=== PATIENT | male | born 1960 | race Caucasian/White ===

== ENCOUNTER → 2016-05-27 | Outpatient (CLI) | payer OTHER ==
[~2016-05-27] MED LIST: ANTIVERT 12.512.5 MG PO; DITROPAN XL10 MG PO; FLOMAX 0.40.4 MG/CAP PO; LEVAQUIN 750MG750 M1 PO; LEVSIN 0.10.125 MG/T PO; NO HOME MEDICATIONS; NORCO 325 MG-51 TAB PO; NORCO 325 MG-7.1 TAB PO; PRILOSEC40 MG PO; PRINIVIL20 MG PO; PYRIDIUM 100MG100 MG PO; SENOKOT S 50 MG1 TAB PO; TYLENOL 325MG325 MG PO
== END ==
LOC: ZLAB.FHCC 12:21
DX: Z01.89 Encounter for other specified special examinations (principal)

== ENCOUNTER 2017-08-01 02:05 | Emergency (ER) | payer SELFPAY ==
[2017-08-01 02:08] VITALS: TEMP 97.5
[2017-08-01 02:25] LABS: COLLECTION METHOD CLEAN CATCH
[2017-08-01 02:32] LABS: MUCOUS Present /lpf; PH 5 (5-8); SQUAMOUS EPITHELIAL None Seen /hpf; URINE APPEARANCE Hazy; URINE BACTERIA None Seen /hpf; URINE BILIRUBIN Negative (NEGATIVE); URINE BLOOD 3+ (NEGATIVE); URINE COLOR Yellow; URINE GLUCOSE 1+ (NEGATIVE); URINE KETONE Negative (NEGATIVE); URINE LEUKOCYTE ESTERASE Negative (NEGATIVE); URINE NITRATE Negative (NEGATIVE); URINE PROTEIN(semi-quant) 1+ (NEGATIVE); URINE RBC >50 /hpf; URINE UROBILINOGEN Negative (NEGATIVE)
[2017-08-01 02:34] LABS: BASO % 0.1 % (0.0-2.0); EOS # 0.2 (0.0-0.7); EOS % 1.9 % (0-4.0); GRAN # 4.3 (1.4-6.5); HEMATOCRIT 44.6 % (42.0-52.0); HEMOGLOBIN 15.5 g/dl (13.5-18.0); LYMPH # 2.7 (1.2-3.4); LYMPH % 34.2 % (20.0-51.0); MEAN CELL VOLUME 89 fl (80.0-100.0); MEAN CORPUSCULAR HEMOGLOBIN 31 pg (27.0-31.0); MEAN CORPUSCULAR HGB CONC 35 g/dl (33.0-37.0); MEAN PLATELET VOLUME 9.5 fl (7.4-10.4); MONO # 0.7 (0.1-0.6); MONO % 8.5 % (1.7-9.3); PLATELET COUNT 200 K/mm3 (130-400); RED BLOOD COUNT 5.01 M/mm3 (4.20-5.60); REDCELL DISTRIBUTION WIDTH-CV 13.6 % (11.5-14.5)
[2017-08-01 02:51] LABS: ALBUMIN 4.2 gm/dL (3.5-5.0); BILIRUBIN,TOTAL 0.4 mg/dL (0.0-1.0); CREATININE, serum 1.03 mg/dL (0.66-1.25); TOTAL PROTEIN 7.6 gm/dL (6.4-8.2)
[2017-08-01 04:09] VITALS: BP 137/91; PULSE 68
== END 2017-08-01 04:15 | disposition home or self-care (01) ==
LOC: COL.ER 02:05
PROVIDERS: Nurse Practitioner
DX: N20.1 Calculus of ureter (principal); I10 Essential (primary) hypertension; F17.210 Nicotine dependence, cigarettes, uncomplicated; Z87.442 Personal history of urinary calculi; Z88.0 Allergy status to penicillin; Z90.89 Acquired absence of other organs; Z98.890 Other specified postprocedural states
CPT/HCPCS: J1170; J1885; J2405; J7030

== ENCOUNTER → 2018-01-15 | Outpatient (CLI) | payer SELFPAY ==
[2018-01-15 10:11] LABS: HEMATOCRIT 45.5 % (42.0-52.0); HEMOGLOBIN 15.6 g/dl (13.5-18.0); MEAN CELL VOLUME 90 fl (80.0-100.0); MEAN CORPUSCULAR HEMOGLOBIN 31 pg (27.0-31.0); MEAN CORPUSCULAR HGB CONC 34 g/dl (33.0-37.0); MEAN PLATELET VOLUME 10.3 fl (7.4-10.4); PLATELET COUNT 214 K/mm3 (130-400); RED BLOOD COUNT 5.08 M/mm3 (4.20-5.60); REDCELL DISTRIBUTION WIDTH-CV 13.7 % (11.5-14.5)
[2018-01-15 10:17] LABS: ALBUMIN 4.1 gm/dL (3.5-5.0); BILIRUBIN,TOTAL 0.7 mg/dL (0.0-1.0); CHOLESTEROL RISK RATIO 5.8; CREATININE, serum 0.93 mg/dL (0.66-1.25); POTASSIUM 4.4 mmol/L (3.4-5.0); TOTAL PROTEIN 7.1 gm/dL (6.4-8.2)
== END ==
LOC: COL.LAB 08:32
DX: I10 Essential (primary) hypertension (principal); E78.5 Hyperlipidemia, unspecified

== ENCOUNTER → 2018-04-06 | Outpatient (CLI) | payer OTHER ==
[2018-04-06 15:44] LABS: HEMATOCRIT 47.1 % (42.0-52.0); HEMOGLOBIN 16.4 g/dl (13.5-18.0); MEAN CELL VOLUME 89 fl (80.0-100.0); MEAN CORPUSCULAR HEMOGLOBIN 31 pg (27.0-31.0); MEAN CORPUSCULAR HGB CONC 35 g/dl (33.0-37.0); MEAN PLATELET VOLUME 11.2 fl (7.4-10.4); PLATELET COUNT 211 K/mm3 (130-400); RED BLOOD COUNT 5.27 M/mm3 (4.20-5.60); REDCELL DISTRIBUTION WIDTH-CV 13.2 % (11.5-14.5)
[2018-04-06 15:57] LABS: ALBUMIN 4.3 gm/dL (3.5-5.0); BILIRUBIN,TOTAL 0.6 mg/dL (0.0-1.0); CALCIUM 9.7 mg/dL (8.4-10.2); CREATININE, serum 1.04 mg/dL (0.66-1.25); POTASSIUM 4.7 mmol/L (3.4-5.0); TOTAL PROTEIN 7.2 gm/dL (6.4-8.2)
[2018-04-06 17:25] LABS: PSA-TOTAL 3.62 ng/mL (0-4)
== END ==
LOC: ZCOL.LAB 14:22
PROVIDERS: Internal Medicine
DX: I10 Essential (primary) hypertension (principal); E11.9 Type 2 diabetes mellitus without complications
CPT/HCPCS: G0103

== ENCOUNTER 2018-04-27 11:39 | Day surgery (SDC) | payer SELFPAY ==
[~2018-04-27] VITALS: Ht 167.6 cm; Wt 71.9 kg
[2018-04-27 12:10] VITALS: BP 139/94; PULSE 80; TEMP 97.8
[2018-04-27 13:25] VITALS: BP 133/91; PULSE 80
--- NOTE | 2018-04-27 13:25 | NUR ---
The patient is wheeled to [facility] via cart by Arlin CHEN. The patient ambulates to the chair with a steady gait and nurse standby assist. The patient's vital signs are stable. Report is obtained. The patient has a dry color tester at the bedside. The patient is naueous and Zofran is administered. The call light is within reach and family is at the bedside. Will continue to monitor.
[2018-04-27 13:40] VITALS: BP 110/74; PULSE 75; TEMP 97.6
--- NOTE | 2018-04-27 13:40 | NUR ---
The patient's vital signs are stable. The patient states that his nausea has improved but he is still sleepy at this time. The patient will be allowed to rest more before he attempts to eat or drink anything. The patient's family member translates to the patient. The call light is within reach and the family members are at the bedside. Will continue to monitor.
[2018-04-27 13:55] VITALS: BP 110/75; PULSE 72
--- NOTE | 2018-04-27 13:55 | NUR ---
The patient's vital signs are stable. The patient wakes and requests apple juice and jello which is brought to him at this time. The call light is within reach and the family members are at the bedside. Will continue to monitor.
[2018-04-27 14:10] VITALS: BP 117/84; PULSE 74
--- NOTE | 2018-04-27 14:10 | NUR ---
The patient's vital signs are stable and the patient tolerated the jello and apple juice. The patient is ready to be discharged. The discharge instructions will be reviewed with the patient and his family.
--- NOTE | 2018-04-27 14:29 | NUR ---
The discharge instructions are reviewed with the patient and his family and all questions are answered. The IV is removed and the tip is intact and a dressing is applied. The patient changes into his personal clothes to be discharged home.
--- NOTE | 2018-04-27 14:29 | NUR ---
The discharge instructions are reviewed with the patient and his family with use of the can filler. All questions are answered. The IV is removed and the tip is intact and a dressing is applied. The patient changes into his personal clothes to be discharged home.
--- NOTE | 2018-04-27 14:38 | NUR ---
The patient is wheeled to the patient entrance via wheelchair to be discharged home via personal vehicle by his family. The patient is sent home with discharge instructions and education packet.
== END 2018-04-27 14:38 | disposition home or self-care (01) ==
LOC: SDCO 11:39
DX: Z80.0 Family history of malignant neoplasm of digestive organs (principal); D12.5 Benign neoplasm of sigmoid colon; D12.7 Benign neoplasm of rectosigmoid junction; K63.5 Polyp of colon; E78.5 Hyperlipidemia, unspecified; K64.0 First degree hemorrhoids; K62.89 Other specified diseases of anus and rectum; I10 Essential (primary) hypertension; Z79.899 Other long term (current) drug therapy; Z88.0 Allergy status to penicillin
CPT/HCPCS: J2250; J2405; J3010; J7030

== ENCOUNTER 2018-05-15 04:56 | Emergency (ER) | payer OTHER ==
[~2018-05-15] VITALS: Ht 170.2 cm; Wt 72.7 kg
[2018-05-15 05:00] VITALS: TEMP 97.8
[2018-05-15 05:31] LABS: BASO % 0.3 % (0.0-2.0); EOS # 0.2 (0.0-0.7); EOS % 2.1 % (0-4.0); GRAN # 3.9 (1.4-6.5); HEMATOCRIT 43.8 % (42.0-52.0); HEMOGLOBIN 15.1 g/dl (13.5-18.0); LYMPH # 2.5 (1.2-3.4); LYMPH % 34.7 % (20.0-51.0); MEAN CELL VOLUME 90 fl (80.0-100.0); MEAN CORPUSCULAR HEMOGLOBIN 31 pg (27.0-31.0); MEAN CORPUSCULAR HGB CONC 35 g/dl (33.0-37.0); MEAN PLATELET VOLUME 10.1 fl (7.4-10.4); MONO # 0.5 (0.1-0.6); MONO % 7.6 % (1.7-9.3); PLATELET COUNT 198 K/mm3 (130-400); RED BLOOD COUNT 4.85 M/mm3 (4.20-5.60); REDCELL DISTRIBUTION WIDTH-CV 13.4 % (11.5-14.5)
[2018-05-15 05:46] LABS: C-REACTIVE PROTEIN 1.3 mg/dL (0.0-0.9); CREATININE, serum 0.91 mg/dL (0.66-1.25); POTASSIUM 3.9 mmol/L (3.4-5.0)
[2018-05-15 05:53] LABS: ERYTHROCYTE SEDIMENTATION RATE 2 mm/hr (0-30)
[2018-05-15] MEDS ORDERED: PHENERGAN 25 TA25 MG PO (06:30)
[2018-05-15] MEDS ORDERED: NEURONTIN300 MG/CAP PO (06:30)
[2018-05-15 07:05] VITALS: BP 138/91; PULSE 70
== END 2018-05-15 07:05 | disposition home or self-care (01) ==
LOC: COL.ER 04:56
PROVIDERS: Emergency Medicine
DX: R51 Headache (principal); I10 Essential (primary) hypertension; F17.210 Nicotine dependence, cigarettes, uncomplicated; Z90.89 Acquired absence of other organs
CPT/HCPCS: J1200; J1885; J2550; J7030

== ENCOUNTER → 2018-09-15 | Outpatient (CLI) | payer OTHER ==
[~2018-09-15] MED LIST changes: +NEURONTIN300 MG/CAP PO; +PHENERGAN 25 TA25 MG PO; +PRINIVIL40 MG PO
[2018-09-15 11:01] LABS: HEMATOCRIT 48.4 % (42.0-52.0); HEMOGLOBIN 16.4 g/dl (13.5-18.0); MEAN CELL VOLUME 91 fl (80.0-100.0); MEAN CORPUSCULAR HEMOGLOBIN 31 pg (27.0-31.0); MEAN CORPUSCULAR HGB CONC 34 g/dl (33.0-37.0); PLATELET COUNT 202 K/mm3 (130-400); RED BLOOD COUNT 5.34 M/mm3 (4.20-5.60); REDCELL DISTRIBUTION WIDTH-CV 13.2 % (11.5-14.5)
[2018-09-15 11:10] LABS: ALBUMIN 4.6 gm/dL (3.5-5.0); BILIRUBIN,TOTAL 0.8 mg/dL (0.0-1.0); CALCIUM 9.7 mg/dL (8.4-10.2); POTASSIUM 4.7 mmol/L (3.4-5.0); TOTAL PROTEIN 7.9 gm/dL (6.4-8.2)
== END ==
LOC: COL.CARD 10:13
PROVIDERS: Surgery
DX: Z01.818 Encounter for other preprocedural examination (principal)

== ENCOUNTER 2018-09-17 10:07 | Day surgery (SDC) | payer OTHER ==
[~2018-09-17] VITALS: Ht 170.2 cm; Wt 73.2 kg
[~2018-09-17 10:07] MED LIST changes: -PRINIVIL40 MG PO
[2018-09-17 10:52] VITALS: BP 137/89; PULSE 66; TEMP 97.6
[2018-09-17] MEDS ORDERED: PRINIVIL40 MG PO (10:52)
--- NOTE | 2018-09-17 12:45 | NUR ---
Patient is resting on the cart and awaits surgery. Family in room.
[2018-09-17] MEDS ORDERED: NORCO 325 MG-51 TAB PO (15:23)
[2018-09-17 15:35] VITALS: BP 120/77; PULSE 70; TEMP 98.4
--- NOTE | 2018-09-17 15:35 | NUR ---
The patient arrived back to [facility] from the recovery room at this time. The patient appears alert and oriented and reports minimal pain in his abdomen at this time. The patient has three bandaids to his abdomen that appear clean, dry, and intact. The patient has scrotal support in place at this time. Post operative vital signs were started at this time. The patient's family is at his bedside at this time. The patient came over from recovery with some ice chips and appears to be tolerating them well. Call light is within reach. The patient's Aunt Patricia is helping the nurse to interrupt as the patient is Hebrew speaking. Will continue to monitor the patient.
[2018-09-17 15:50] VITALS: BP 124/70; PULSE 73
--- NOTE | 2018-09-17 15:50 | NUR ---
The patient appears to be tolerating the ice chips well and agrees to try a muffin, jello, and orange juice. Vital signs appear stable. The patient's family remains at his bedside. Will continue to monitor the patient.
[2018-09-17 16:03] VITALS: TEMP 98.2
[2018-09-17 16:05] VITALS: BP 120/77; PULSE 80
--- NOTE | 2018-09-17 16:10 | NUR ---
The patient has finished his food and drink and appeared to tolerate both well. The patient was given a dose of [place] one tab at this time to continue his pain control. Vital signs appear stable. Call light is within reach. Will continue to monitor the patient.
[2018-09-17 16:30] VITALS: BP 125/70; PULSE 81
--- NOTE | 2018-09-17 16:30 | NUR ---
The patient is sitting up in bed and appears to be resting comfortably on the cart. The patient voices a desire to be discharged home. The patient's IV to his right hand was removed by GUSTAVO Contreras. The patient's is going to assist him to get dressed and then his discharge instrucitons will be reviewed.
--- NOTE | 2018-09-17 16:40 | NUR ---
Discharge instructions were reviewed with the patient and his family with the assistance of his Aunt Patricia hughesrochelle for the nurse. They all verbalized understanding and questions were answered at this time. The patient's took the patient's scrotal support off when getting him dressed and the nurse instructed her to put it back on when they get home.
--- NOTE | 2018-09-17 16:49 | NUR ---
The patient was escorted out via wheelchair to a private vehicle by GUSTAVO Parada. The patient's belongings and discharge paperwork were sent with him. The patient's family is present to drive him home.
== END 2018-09-17 16:49 | disposition home or self-care (01) ==
LOC: SDCO 10:07
DX: K40.90 Unilateral inguinal hernia, without obstruction or gangrene, not specified as recurrent (principal); D17.6 Benign lipomatous neoplasm of spermatic cord; I10 Essential (primary) hypertension; E78.00 Pure hypercholesterolemia, unspecified; F17.210 Nicotine dependence, cigarettes, uncomplicated; Z95.0 Presence of cardiac pacemaker; Z87.442 Personal history of urinary calculi
CPT/HCPCS: C1781; J0690; J1100; J1885; J2270; J2405; J2704; J3010; J7120

== ENCOUNTER → 2018-12-17 | Outpatient (CLI) | payer SELFPAY ==
[~2018-12-17] MED LIST changes: +PRINIVIL40 MG PO
[2018-12-17 08:46] LABS: HEMATOCRIT 49.5 % (42.0-52.0); HEMOGLOBIN 16.9 g/dl (13.5-18.0)
[2018-12-17 09:02] LABS: ALBUMIN 4.6 gm/dL (3.5-5.0); BILIRUBIN,TOTAL 0.7 mg/dL (0.0-1.0); CALCIUM 9.2 mg/dL (8.4-10.2); CHOLESTEROL RISK RATIO 6.3; CREATININE, serum 0.99 (0.66-1.25); POTASSIUM 4.7 mmol/L (3.4-5.0); TOTAL PROTEIN 7.5 gm/dL (6.4-8.2)
== END ==
LOC: COL.LAB 08:16
PROVIDERS: Internal Medicine
DX: I10 Essential (primary) hypertension (principal)

== ENCOUNTER → 2019-01-27 | Outpatient (CLI) | payer OTHER | LOC: COL.RAD 14:06 | DX: N43.3 Hydrocele, unspecified (principal) ==

== ENCOUNTER 2019-04-30 14:14 | Emergency (ER) | payer OTHER ==
[~2019-04-30] VITALS: Ht 170.2 cm; Wt 74.5 kg
[2019-04-30 14:19] VITALS: BP 166/97; TEMP 99
[2019-04-30] MEDS ORDERED: DOXYCYCLINE HY100 MG PO (14:32)
[2019-04-30] MEDS ORDERED: VALTREX1 GM PO (15:23)
[2019-04-30] MEDS ORDERED: NORCO 325 MG-51 TAB PO ×2 (15:23→15:51)
[2019-04-30] MEDS ORDERED: NEURONTIN300 MG/CAP PO (15:23)
[2019-04-30 16:00] VITALS: PULSE 84
== END 2019-04-30 16:01 | disposition home or self-care (01) ==
LOC: COL.ER 14:14
DX: B02.9 Zoster without complications (principal); R07.89 Other chest pain

== ENCOUNTER → 2019-11-18 | Outpatient (CLI) | payer SELFPAY ==
[~2019-11-18] MED LIST changes: +DOXYCYCLINE HY100 MG PO; +VALTREX1 GM PO
== END ==
LOC: COL.RAD 08:10
DX: N20.0 Calculus of kidney (principal); N40.0 Benign prostatic hyperplasia without lower urinary tract symptoms; Z90.89 Acquired absence of other organs

== ENCOUNTER 2020-09-08 21:59 | Emergency (ER) | payer OTHER ==
[~2020-09-08] VITALS: Ht 170.2 cm; Wt 74.5 kg
[2020-09-08 22:59] LABS: COLLECTION METHOD CLEAN CATCH
[2020-09-08 23:05] LABS: MUCOUS Present /lpf; PH 5 (5-8); SQUAMOUS EPITHELIAL 0-2 /hpf; URINE APPEARANCE Hazy; URINE BACTERIA Rare /hpf; URINE BILIRUBIN Negative (NEGATIVE); URINE BLOOD 3+ (NEGATIVE); URINE COLOR Yellow; URINE GLUCOSE 2+ (NEGATIVE); URINE KETONE Trace (NEGATIVE); URINE LEUKOCYTE ESTERASE Negative (NEGATIVE); URINE NITRATE Negative (NEGATIVE); URINE PROTEIN(semi-quant) 1+ (NEGATIVE); URINE RBC >50 /hpf
[2020-09-08 23:20] LABS: BASO % 0.2 % (0.0-2.0); EOS # 0.2 (0.0-0.7); GRAN # 6.2 (1.4-6.5); GRAN % 76.3 % (42.2-75.2); HEMATOCRIT 45.5 % (42.0-52.0); HEMOGLOBIN 15.5 g/dl (13.5-18.0); LYMPH # 1.2 (1.2-3.4); MEAN CELL VOLUME 90 fl (80.0-100.0); MEAN CORPUSCULAR HEMOGLOBIN 31 pg (27.0-31.0); MEAN CORPUSCULAR HGB CONC 34 g/dl (33.0-37.0); MEAN PLATELET VOLUME 10.3 fl (7.4-10.4); MONO # 0.5 (0.1-0.6); MONO % 6.3 % (1.7-9.3); PLATELET COUNT 191 K/mm3 (130-400); RED BLOOD COUNT 5.06 M/mm3 (4.20-5.60); REDCELL DISTRIBUTION WIDTH-CV 13.7 % (11.5-14.5)
[2020-09-08 23:33] LABS: ALBUMIN 4.5 gm/dL (3.5-5.0); BILIRUBIN,TOTAL 0.4 mg/dL (0.0-1.0); CALCIUM 8.9 mg/dL (8.4-10.2); CREATININE, serum 1.22 (0.66-1.25); POTASSIUM 3.9 mmol/L (3.4-5.0); TOTAL PROTEIN 7.8 gm/dL (6.4-8.2)
[2020-09-09 01:45] VITALS: BP 151/93; PULSE 82; TEMP 97.7
== END 2020-09-09 01:56 | disposition home or self-care (01) ==
LOC: COL.ER 21:59
PROVIDERS: Emergency Medicine; Physician Assistant
DX: R31.9 Hematuria, unspecified (principal); N28.1 Cyst of kidney, acquired; I10 Essential (primary) hypertension; F17.210 Nicotine dependence, cigarettes, uncomplicated; Z79.899 Other long term (current) drug therapy
CPT/HCPCS: J7030; Q9967

== ENCOUNTER 2020-12-23 20:08 | Emergency (ER) | payer OTHER ==
[~2020-12-23] VITALS: Ht 170.2 cm; Wt 74.1 kg
[2020-12-23 21:11] LABS: BASO % 0.2 % (0.0-2.0); EOS # 0.1 (0.0-0.7); EOS % 0.8 % (0-4.0); GRAN % 75.3 % (42.2-75.2); HEMATOCRIT 42.4 % (42.0-52.0); HEMOGLOBIN 14.8 g/dl (13.5-18.0); LYMPH # 1.8 (1.2-3.4); LYMPH % 14.9 % (20.0-51.0); MEAN CELL VOLUME 89 fl (80.0-100.0); MEAN CORPUSCULAR HEMOGLOBIN 31 pg (27.0-31.0); MEAN CORPUSCULAR HGB CONC 35 g/dl (33.0-37.0); MONO % 8.3 % (1.7-9.3); PLATELET COUNT 214 K/mm3 (130-400); RED BLOOD COUNT 4.79 M/mm3 (4.20-5.60); REDCELL DISTRIBUTION WIDTH-CV 13.4 % (11.5-14.5)
[2020-12-23 21:30] LABS: ALANINE AMINOTRANSFERASE 28 U/L (4-49); ALBUMIN 4.4 gm/dL (3.5-5.0); ALKALINE PHOSPHATASE 129 U/L (50-136); ANION GAP 10 mmol/L (7-16); AST,SGOT 29 U/L (15-37); BILIRUBIN,TOTAL 0.7 mg/dL (0.0-1.0); BLOOD UREA NITROGEN 20 mg/dL (9-20); CALCIUM 9.2 mg/dL (8.4-10.2); CARBON DIOXIDE 25 mmol/L (22-30); CHLORIDE 104 mmol/L (98-107); CREATININE, serum 1.02 (0.66-1.25); GLUCOSE 125 mg/dL (74-106); SODIUM 139 mmol/L (137-145); TOTAL PROTEIN 7.3 gm/dL (6.4-8.2)
[2020-12-23 21:51] LABS: C-REACTIVE PROTEIN 18.2 mg/dL (0.0-0.9); TROPONIN-I < 0.012 ng/mL (0.000-0.035)
[2020-12-23] MEDS ORDERED: LEVAQUIN 5500 MG/TA1 PO (22:35)
[2020-12-23 22:43] VITALS: BP 152/70; PULSE 88; TEMP 98.9
== END 2020-12-23 22:58 | disposition home or self-care (01) ==
LOC: COL.ER 20:08
PROVIDERS: Nurse Practitioner
DX: J18.1 Lobar pneumonia, unspecified organism (principal); I10 Essential (primary) hypertension; F17.210 Nicotine dependence, cigarettes, uncomplicated; Z20.822 Contact with and (suspected) exposure to COVID-19; Z79.899 Other long term (current) drug therapy

== ENCOUNTER → 2021-02-27 | Outpatient (CLI) | payer SELFPAY ==
[~2021-02-27] MED LIST changes: +LEVAQUIN 5500 MG/TA1 PO
== END ==
LOC: COL.RAD 14:32
DX: J18.9 Pneumonia, unspecified organism (principal)

== ENCOUNTER → 2021-03-28 | Outpatient (CLI) | payer SELFPAY | LOC: COL.RAD 09:44 | DX: N28.1 Cyst of kidney, acquired (principal); K76.0 Fatty (change of) liver, not elsewhere classified; N20.0 Calculus of kidney; K63.89 Other specified diseases of intestine; Z90.89 Acquired absence of other organs | CPT/HCPCS: Q9967 ==

== ENCOUNTER 2021-06-20 13:45 | Observation (INO) | payer SELFPAY ==
[~2021-06-20] VITALS: Ht 170.2 cm; Wt 78.7 kg
[2021-06-20 14:11] LABS: BASO % 0.3 % (0.0-2.0); EOS # 0.1 K/mm3 (0.0-0.7); EOS % 1.1 % (0.0-4.0); GRAN # 3.8 K/mm3 (1.4-6.5); GRAN % 59.9 % (42.2-75.2); HEMATOCRIT 45.9 % (42.0-52.0); HEMOGLOBIN 15.9 g/dl (13.5-18.0); LYMPH # 1.9 K/mm3 (1.2-3.4); LYMPH % 30.3 % (20.0-51.0); MEAN CELL VOLUME 89 fl (80.0-100.0); MEAN CORPUSCULAR HEMOGLOBIN 31 pg (27-31); MEAN CORPUSCULAR HGB CONC 35 g/dl (33.0-37.0); MEAN PLATELET VOLUME 9.7 fl (7.4-10.4); MONO # 0.5 K/mm3 (0.1-0.6); MONO % 8.1 % (1.7-9.3); PLATELET COUNT 201 K/mm3 (130-400); RED BLOOD COUNT 5.17 M/mm3 (4.20-5.60)
[2021-06-20 14:29] LABS: ALANINE AMINOTRANSFERASE 37 U/L (0-55); ALBUMIN 4.6 gm/dL (3.4-4.8); ALKALINE PHOSPHATASE 121 U/L (40-150); ANION GAP 8 mmol/L (7-16); AST,SGOT 21 U/L (5-34); BILIRUBIN,TOTAL 0.5 mg/dL (0.2-1.2); BLOOD UREA NITROGEN 15 mg/dL (8-26); CARBON DIOXIDE 28 mmol/L (23-31); CHLORIDE 105 mmol/L (98-107); CREATININE, serum 1.03 mg/dL (0.72-1.25); GLUCOSE 95 mg/dL (70-99); POTASSIUM 4.4 mmol/L (3.5-4.5); SODIUM 141 mmol/L (136-145); TOTAL PROTEIN 7.6 gm/dL (6.2-8.1)
[2021-06-20 14:38] LABS: TROPONIN-I < 0.010 ng/mL (0.00-0.033)
[2021-06-20 20:06] VITALS: BP 146/88; PULSE 87; TEMP 98.1
--- NOTE | 2021-06-20 22:00 | NUR ---
Patient is resting in bed with and son at the bedside. Alert and oriented x 4, Denies any Chest pain. Telemetry in place, NSR, NS at30 ml/hr. Assessment completed, medications provided. Invited family to comeback tomorrow after 8 am. Family upset and disapointed since expecting to stay with him all night. It was explained pt is stable and he is being monitoring by nurse, chief librarian music department, telemetry, regular VS, and they are welcome to call any time along the night. Pt stated he agrees but was not satisfied with explanation. It was explained the hospital policy for visitors. and son left hospital at around 22 hrs.
[2021-06-20 23:37] VITALS: BP 117/71; PULSE 74; TEMP 98.4
[2021-06-20 23:59] VITALS: BP 116/66; PULSE 74; TEMP 97.8
[2021-06-21] VITALS (9 sets, daily range): BP systolic 114–155; BP diastolic 71–95; PULSE 68–114; TEMP 97.5–98.2
--- NOTE | 2021-06-21 05:32 | NUR ---
Patient has had an uneventful night, Denied any chest pain. Continue getting fluids. Report will be given to day RN.
[2021-06-21 07:23] LABS: TROPONIN-I < 0.010 ng/mL (0.00-0.033)
[2021-06-21 07:32] LABS: CHOLESTEROL 251 mg/dL (0-199); CHOLESTEROL RISK RATIO 6.7; HDL CHOLESTEROL 37 mg/dL (40-60); LDL CHOLESTEROL 172 mg/dL; TRIGLYCERIDE 210 mg/dL (0-149)
--- NOTE | 2021-06-21 10:46 | NUR ---
Patient resting comfortable in bed no complaints of pain noted at this time. Will continue to monitor patient on this shift.
--- NOTE | 2021-06-21 10:47 | NUR ---
Patient resting in bed complaining of pain 8 out of 10 received Flexeril 5 mg, call light in place bed in low position. Will continue to monitor patient throughout shift.
[2021-06-21] MEDS ORDERED: CRESTOR 10MG10 MG PO (12:48)
--- NOTE | 2021-06-21 12:52 | NUR ---
Patient resting comfortable in bed no complaints of pain at this time, he is being discharged later on today. Family is in room with him call light in place. bed in low position.
--- NOTE | 2021-06-21 13:45 | NUR ---
Scheduled medications given by student under the supervision of licensed RN. shift assessment performed. Nothing outside of normal limits noted. Stress test completed. Patient deemed fit for discharge. Discharge education/instructions given, and then translated by daughter. All questions answered. Patient denies any pain, discomfort, SOA, or futher needs at this time. Patient ambulated out of building by escorted by [facility] staff. Family transporting home. VSS. Patient A&O.
--- NOTE | 2021-06-21 13:54 | NUR ---
Primary nurse was assisted with [id number] patient care by [employer] [employer] [facility] [employer] student Chelle Taveras and [facility] instructor Lizet Haider MSN, RN.
--- NOTE | 2021-06-21 14:35 | NUR ---
Phone call made to the patient's daughter to complete intake. Patient currently lives at home alone and is independent with his ADL's. He does not utilize any DME to assist with mobility. Patient does not utilize O2 at home. PCP is HÉCTOR Montejo and he utilizes [facility] for medications. Patient's daughter states that he does not have a DPOA-HC established, but that the patient's father this morning. Discharge plan: home
== END 2021-06-21 13:45 | disposition home or self-care (01) ==
LOC: COL.ER 13:45 → MEDICAL 15:48
PROVIDERS: Emergency Medicine; ADMIT Internal Medicine
DX: R07.9 Chest pain, unspecified (principal); I10 Essential (primary) hypertension; E78.5 Hyperlipidemia, unspecified; Z20.822 Contact with and (suspected) exposure to COVID-19; Z87.891 Personal history of nicotine dependence; Z79.899 Other long term (current) drug therapy
CPT/HCPCS: A9500; G0378; J1650; J2785; J7030

== ENCOUNTER 2021-07-15 09:04 | Observation (INO) | payer OTHER ==
[~2021-07-15] VITALS: Ht 170.2 cm; Wt 74.0 kg
[~2021-07-15 09:04] MED LIST changes: +CRESTOR 10MG10 MG PO
[2021-08-09] VITALS (11 sets, daily range): BP systolic 108–168; BP diastolic 66–97; PULSE 45–113; TEMP 97.4–98.5
[2021-08-09] MEDS ORDERED: PRAVACHOL 20MG20 MG PO (06:33)
[2021-08-09] MEDS ORDERED: ASPIRIN E.C. 8181 MG PO (06:33)
--- NOTE | 2021-08-09 10:45 | NUR ---
Pt arrived to the floor from [facility]. He is alert and oriented, although drowsy. No pain complaints, reports that he feels like he needs to void. CBI running at moderate rate, output clear, pink tinged. Oriented pt and family to the room. Pt is only [place] citizen speaking, son is translating.
--- NOTE | 2021-08-09 12:37 | NUR ---
Pt doing okay. He is having a hard time getting comfortable. He had complaints of feeling like he needs to void, Levsin given. Pt then had an episode of feeling nauseated, no emesis. Pt also stated he had the urge to have a bowel movement. Educated to not strain. pts son has been translating. CBI continues to run at moderate rate. Output is without clots and is light red to red tinged. Pt has ordered lunch. No other needs, will continue to monitor
--- NOTE | 2021-08-09 15:00 | NUR ---
Pt continues to have bloody output with CBI running open. Dr Lizama was on the floor, mentioned it to him, so he stopped in to see pt. Stated he would call Dr Stout
--- NOTE | 2021-08-09 16:30 | NUR ---
Dr Stout came up to see pt, orders wrote for surgery. Consent signed. Continue to keep CBI wide open with red output.
--- NOTE | 2021-08-09 19:00 | NUR ---
Consent signed for surgery, family aware of pt going to surgery around 1999. All questions answered. Output still bloody with CBI wide open
[2021-08-09 22:26] LABS: HEMATOCRIT 36.7 % (42.0-52.0); HEMOGLOBIN 12.5 g/dl (13.5-18.0); MEAN CELL VOLUME 90 fl (80.0-100.0); MEAN CORPUSCULAR HEMOGLOBIN 31 pg (27-31); MEAN CORPUSCULAR HGB CONC 34 g/dl (33.0-37.0); MEAN PLATELET VOLUME 9.9 fl (7.4-10.4); PLATELET COUNT 227 K/mm3 (130-400); REDCELL DISTRIBUTION WIDTH-CV 13.4 % (11.5-14.5)
[2021-08-10 04:03] VITALS: BP 136/83; PULSE 110
[2021-08-10 05:49] LABS: HEMOGLOBIN 11.5 g/dl (13.5-18.0); MEAN CELL VOLUME 89 fl (80.0-100.0); MEAN CORPUSCULAR HEMOGLOBIN 31 pg (27-31); MEAN CORPUSCULAR HGB CONC 34 g/dl (33.0-37.0); MEAN PLATELET VOLUME 10.3 fl (7.4-10.4); PLATELET COUNT 224 K/mm3 (130-400); RED BLOOD COUNT 3.77 M/mm3 (4.20-5.60); REDCELL DISTRIBUTION WIDTH-CV 13.5 % (11.5-14.5)
[2021-08-10 05:54] LABS: HEMATOCRIT 33.6 % (42.0-52.0)
--- NOTE | 2021-08-10 07:14 | NUR ---
Patient returned to the floor at approximately 2300. Patient has 3 way estevez catheter connected to CBI. Initially the drainage was benjamin red with no clots, CBI has been running open throughout this shift. Dr. Stout contacted this nurse after the procedure and informed me that he should be called if there are any clots present or if urine does not lighten. Gradually the patients urine began to lighten and by the end of this nurses shift urine was pale pink in color. Patients and son stayed over night due to family translating for the patient. Patient did not have complaints of pain but did complain of pressure in his abdomen due to the high volume of fluids running through his bladder; no complaints of bladder spasms. Patient has been pleasent and alert. Full body assessment and medication adminstration completed without difficulty. Patient has tolerated oral intake well. No other complaints at this time, call light within reach. Questions asked by the patient and family were answered.
[2021-08-10 07:26] VITALS: BP 128/71; PULSE 86; TEMP 97.9
--- NOTE | 2021-08-10 08:34 | NUR ---
Pt doing well this am, no pain complaints. Dr Stout in to see patient. CBI running at slow rate with clear pale yellow output. Educated pt on room service and pt did order some breakfast. INT IV fluids at this time. No other needs, call light within reach
--- NOTE | 2021-08-10 11:28 | NUR ---
Pt doing well. CBI continues to run at slow rate. Output is clear of clots and is pink tinged to light yellow. Pts son remains with him to help with translation. Pt not having any complaints of pain at this time
[2021-08-10 11:36] VITALS: BP 137/79; PULSE 93; TEMP 98.8
[2021-08-10 15:26] VITALS: BP 145/74; PULSE 95; TEMP 98.1
--- NOTE | 2021-08-10 18:03 | NUR ---
Pt did well throughout the afternoon. No complaints of pain, CBI running at slow rate with output being pale yellow, slightly red tinged. Pt has minimal needs
[2021-08-10 19:50] VITALS: BP 136/72; PULSE 93; TEMP 99.1
[2021-08-11] VITALS: BP 116/71; PULSE 89; TEMP 98.9
--- NOTE | 2021-08-11 02:57 | NUR ---
Patient has had an uneventful shift thus far. No complaints of pain or bladder spasms. [address] way catheter still in place with CBI running at a slow pace. and son at the bedside to help translate. Full body assessment and medication adminstration completed without difficulty. No other complaints at this time, call light within reach.
[2021-08-11 03:41] VITALS: BP 125/75; PULSE 86; TEMP 99
--- NOTE | 2021-08-11 06:19 | NUR ---
Verbal report received from Dr. Awa Stout to prime and pull pts estevez catheter and initiate 6 cup procedure. Educated patient on the procedure, patient and spouse expressed understanding. 250ml was infused to the patients bladder, 30ml was extracted from ballon, estevez was pulled out without difficulty. Patient experienced minor discomfort but tolerated procedure well. Patient and spouse deny questions at this time.
--- NOTE | 2021-08-11 06:55 | NUR ---
awake resting in bed, bedside shift report received from GUSTAVO Rich, spoke with son via phone who translated to patient for him to call whenever he feels the need to void, verbalizes understanding, urinal at bedside
--- NOTE | 2021-08-11 07:24 | NUR ---
voided approx 100ml red colored urine, instructed to call and will ambulate to the bathroom the next time he needs to void, full assessment completed, see interventions for further info, denies needs at this time
[2021-08-11 07:39] VITALS: BP 169/92; PULSE 88; TEMP 97.8
--- NOTE | 2021-08-11 07:41 | NUR ---
has voided again approx 200 dark red urine
--- NOTE | 2021-08-11 09:35 | NUR ---
Dr Stout was in to see patient, will plan discharge later
--- NOTE | 2021-08-11 10:15 | NUR ---
discharge instructions given to patient and family and verbalizes understanding
--- NOTE | 2021-08-11 10:20 | NUR ---
discharged per WC
== END 2021-08-11 10:20 | disposition home or self-care (01) ==
LOC: SURG 08-09 05:29 → SDCO 08-09 05:29 → EDSTATUS 08-09 07:30 → SURG 08-09 10:30 → SDCO 08-09 10:30 → SURG 08-11 10:20 → SDCO 08-11 10:20 → SURG 08-11 10:20
PROVIDERS: ADMIT Urology
DX: N40.1 Benign prostatic hyperplasia with lower urinary tract symptoms (principal); R33.8 Other retention of urine; R39.14 Feeling of incomplete bladder emptying; R39.12 Poor urinary stream; R39.16 Straining to void; R35.1 Nocturia; N28.1 Cyst of kidney, acquired; R31.9 Hematuria, unspecified; F17.210 Nicotine dependence, cigarettes, uncomplicated
CPT/HCPCS: OP; J0690; J1100; J2175; J2405; J2704; J3010; J7030; J7120

== ENCOUNTER 2021-09-02 18:45 | Emergency (ER) | payer OTHER ==
[~2021-09-02] VITALS: Ht 172.7 cm; Wt 75.0 kg
[~2021-09-02 18:45] MED LIST changes: +ASPIRIN E.C. 8181 MG PO; +PRAVACHOL 20MG20 MG PO
[2021-09-02 19:10] VITALS: TEMP 98.2
[2021-09-02 20:07] LABS: BASO % 0.3 % (0.0-2.0); EOS # 0.3 K/mm3 (0.0-0.7); GRAN # 4.5 K/mm3 (1.4-6.5); GRAN % 61.2 % (42.2-75.2); HEMATOCRIT 37.3 % (42.0-52.0); HEMOGLOBIN 12.6 g/dl (13.5-18.0); LYMPH % 26.7 % (20.0-51.0); MEAN CELL VOLUME 90 fl (80.0-100.0); MEAN CORPUSCULAR HEMOGLOBIN 31 pg (27-31); MEAN CORPUSCULAR HGB CONC 34 g/dl (33.0-37.0); MEAN PLATELET VOLUME 9.4 fl (7.4-10.4); MONO # 0.6 K/mm3 (0.1-0.6); MONO % 7.4 % (1.7-9.3); PLATELET COUNT 229 K/mm3 (130-400); RED BLOOD COUNT 4.13 M/mm3 (4.20-5.60); REDCELL DISTRIBUTION WIDTH-CV 13.4 % (11.5-14.5)
[2021-09-02 20:11] LABS: PROTHROMBIN TIME 11.9 SECONDS (9.7-12.8)
[2021-09-02 20:26] LABS: ALBUMIN 4.4 gm/dL (3.4-4.8); BILIRUBIN,TOTAL 0.3 mg/dL (0.2-1.2); CALCIUM 9.3 mg/dL (8.4-10.2); CREATININE, serum 1.59 mg/dL (0.72-1.25); POTASSIUM 4.5 mmol/L (3.5-4.5); TOTAL PROTEIN 7.3 gm/dL (6.2-8.1)
[2021-09-02 23:14] VITALS: BP 142/92; PULSE 82
== END 2021-09-02 23:14 | disposition home or self-care (01) ==
LOC: COL.ER 18:45
PROVIDERS: Personal Emergency Response Attendant
DX: R31.9 Hematuria, unspecified (principal); R33.9 Retention of urine, unspecified; Z90.79 Acquired absence of other genital organ(s)
CPT/HCPCS: J2270; J2405

== ENCOUNTER 2022-05-29 08:21 | Emergency (ER) | payer SELFPAY ==
[~2022-05-29] VITALS: Ht 165.1 cm; Wt 75.0 kg
[2022-05-29 08:27] VITALS: TEMP 98
[2022-05-29] MEDS ORDERED: BIAXIN 500MG T500 MG PO (08:59)
[2022-05-29] MEDS ORDERED: NASONEX SPRAY17 GM NS (08:59)
[2022-05-29] MEDS ORDERED: ZYRTEC 10MG10 MG PO (08:59)
[2022-05-29 09:02] VITALS: BP 141/88; PULSE 76
== END 2022-05-29 09:02 | disposition home or self-care (01) ==
LOC: COL.ER 08:21
DX: J06.9 Acute upper respiratory infection, unspecified (principal); Z87.891 Personal history of nicotine dependence; Z88.1 Allergy status to other antibiotic agents

== ENCOUNTER 2022-09-18 08:09 | Emergency (ER) | payer SELFPAY ==
[~2022-09-18] VITALS: Ht 170.2 cm; Wt 73.2 kg
[~2022-09-18 08:09] MED LIST changes: +BIAXIN 500MG T500 MG PO; +NASONEX SPRAY17 GM NS; +ZYRTEC 10MG10 MG PO
[2022-09-18 08:16] VITALS: TEMP 98
[2022-09-18 08:30] LABS: BASO % 0.2 % (0.0-2.0); EOS # 0.1 K/mm3 (0.0-0.7); EOS % 2.2 % (0.0-4.0); GRAN # 3.4 K/mm3 (1.4-6.5); GRAN % 55.6 % (42.2-75.2); HEMATOCRIT 43.9 % (42.0-52.0); LYMPH % 33.6 % (20.0-51.0); MEAN CELL VOLUME 90 fl (80.0-100.0); MEAN CORPUSCULAR HEMOGLOBIN 31 pg (27-31); MEAN CORPUSCULAR HGB CONC 34 g/dl (33.0-37.0); MEAN PLATELET VOLUME 10.2 fl (7.4-10.4); MONO # 0.5 K/mm3 (0.1-0.6); MONO % 8.2 % (1.7-9.3); PLATELET COUNT 229 K/mm3 (130-400); RED BLOOD COUNT 4.87 M/mm3 (4.20-5.60); REDCELL DISTRIBUTION WIDTH-CV 13.3 % (11.5-14.5)
[2022-09-18 08:34] LABS: COLLECTION METHOD CLEAN CATCH
[2022-09-18 08:49] LABS: MUCOUS Present (NOT PRESENT); SQUAMOUS EPITHELIAL 0-2 /hpf (0-10); URINE BACTERIA Rare /hpf (NONE SEEN); URINE RBC 0-2 /hpf (0-2)
[2022-09-18 08:51] LABS: URINE APPEARANCE Clear (CLEAR/HAZY); URINE BLOOD Negative (NEGATIVE); URINE COLOR Yellow (YELLOW); URINE GLUCOSE TRACE (NEGATIVE); URINE KETONE Negative (NEGATIVE); URINE NITRATE Negative (NEGATIVE); URINE PROTEIN(semi-quant) 1+ (NEGATIVE); URINE UROBILINOGEN 0.2 (NEGATIVE)
[2022-09-18 08:58] LABS: ALBUMIN 4.3 gm/dL (3.4-4.8); BILIRUBIN,TOTAL 0.6 mg/dL (0.2-1.2); CALCIUM 9.4 mg/dL (8.4-10.2); CREATININE, serum 1.01 mg/dL (0.72-1.25); TOTAL PROTEIN 7.1 gm/dL (6.2-8.1)
[2022-09-18] MEDS ORDERED: INDOCIN 25MG CA25 MG PO (11:01)
[2022-09-18] MEDS ORDERED: ROBAXIN 50500 MG/TAB PO (11:01)
[2022-09-18 11:04] VITALS: BP 166/99; PULSE 72
== END 2022-09-18 11:10 | disposition home or self-care (01) ==
LOC: COL.ER 08:09
PROVIDERS: Emergency Medicine
DX: M54.16 Radiculopathy, lumbar region (principal); Z90.49 Acquired absence of other specified parts of digestive tract; Z98.890 Other specified postprocedural states
CPT/HCPCS: J1885; J7120; Q9967

== ENCOUNTER → 2023-05-22 | Outpatient (CLI) | payer SELFPAY ==
[~2023-05-22] MED LIST changes: +INDOCIN 25MG CA25 MG PO; +ROBAXIN 50500 MG/TAB PO
== END ==
LOC: COL.RAD 10:01
DX: K76.0 Fatty (change of) liver, not elsewhere classified (principal); R10.12 Left upper quadrant pain